=== PATIENT | male | born 1940 | race Caucasian/White ===

== ENCOUNTER 2018-12-14 11:42 | Inpatient (IN) | payer OTHER, BC ==
[2018-12-07 12:59] LABS: URINE BILIRUBIN NEGATIVE (Negative); URINE BLOOD NEGATIVE (Negative); URINE CLARITY CLEAR; URINE COLOR YELLOW; URINE GLUCOSE-RANDOM* 3+ (Negative); URINE KETONES NEGATIVE (Negative); URINE LEUKOCYTES-REFLEX NEGATIVE (Negative); URINE NITRITE-REFLEX NEGATIVE (Negative); URINE PROTEIN (DIPSTICK) NEGATIVE (Negative); URINE SPECIFIC GRAVITY 1.015 (1.005-1.035); URINE UROBILINOGEN 0.2 E.U./dl (0.2-1.0)
[2018-12-07 13:10] LABS: HEMATOCRIT 43.7 % (42.0-52.0); HEMOGLOBIN 14.7 gm/dL (14.0-18.0); MCH 26.4 pg (26.0-34.0); MCHC 33.7 g/dL (28.0-37.0); MCV 78.5 fL (80.0-100.0); RBC 5.57 mil/uL (4.50-6.00); RDW 16.5 % (10.5-14.5); WBC 7.9 thou/uL (4.0-11.0)
[2018-12-07 13:14] LABS: ALBUMIN 3.7 g/dL (3.4-5.0); CALCIUM 9.5 mg/dL (8.5-10.1); CREATININE 0.9 mg/dL (0.7-1.3); POTASSIUM 4.2 mmol/L (3.5-5.1); PROTIME 10.7 Seconds (9.3-11.4)
[2018-12-08 00:09] LABS: GLYCOHEMOGLOBIN (HGB A1C) 7.1 % (4.8-5.6)
[~2018-12-14] VITALS: Ht 172.7 cm; Wt 105.7 kg
--- NOTE | ~2018-12-14 | O ---
[facility] [place] [address] OPERATIVE REPORT Name: DANIEL WOODS Room #: 418-P ADM IN M.R.#: [id number] Admission: 12/14/18 Attend Phys: Miguel Isabel MD Discharge: Date of : 44 Report #: [id number] THIS REPORT FOR: //name// CC: Santos Soriano DATE OF SERVICE: 12/14/2018 PREOPERATIVE DIAGNOSIS: Right knee osteoarthritis. POSTOPERATIVE DIAGNOSIS: Right knee osteoarthritis. PROCEDURE: Right total knee arthroplasty using Navio robotic assistance. SURGEON: Miguel Isabel MD. FAST FOOD CREW MEMBER: Mackenzie Rosas PA-C. INDICATIONS FOR FAST FOOD CREW MEMBER: Throughout the case, extensive retraction and manipulation of the knee was required. This was afforded to me by my information assistant. ANESTHESIA: LMA with an adductor canal block. IMPLANTS: [employer]hew size 5 Legion cobalt chrome posterior stabilized femur, a size 4 tibia, size 9 highly constrained polyethylene and size 35 patella. TOURNIQUET TIME: 62 minutes. ESTIMATED BLOOD LOSS: 25 mL. COMPLICATIONS: None. SPECIMENS: None. CONDITION UPON LEAVING THE OPERATING ROOM: Stable. INDICATIONS FOR PROCEDURE: The patient is a 78-year-old gentleman with right knee osteoarthritis who failed conservative measures for this and after discussion with him, he elected for right total knee arthroplasty. DESCRIPTION OF PROCEDURE: Risks, benefits, alternatives, complications were discussed in detail with the patient including but not limited to risk of anesthesia, risk of damage to nerves, arteries, blood vessels, risk for [facility] [address] [place] [address] OPERATIVE REPORT Name: DANIEL WOODS Room #: 418-P [facility] IN M.R.#: [id number] Admission: 12/14/18 Attend Phys: Miguel Isabel MD Discharge: Date of : 44 Report #: [id number] infection, bleeding, risk for continued knee pain and need for reoperation. Informed consent was obtained from the patient. Right knee was appropriately marked in the preoperative holding area. IV Ancef was given for preoperative antibiotics. He was brought to the operating room and placed in supine position on operating room table. LMA anesthesia was induced without complication. Tourniquet was placed on the right thigh. Right lower extremity was prepped and draped in normal sterile fashion. Timeout was performed properly identifying the patient and procedure as well as the instrumentation. All in the operating room were in agreement. Right lower extremity was exsanguinated, tourniquet was inflated. Tourniquet time was 62 minutes. Standard midline approach to knee was made with 10 blade through the skin. Dissection was taken down sharply to the fascia and deep flaps were developed medially and laterally. Fresh 10 blade was used to make a medial parapatellar arthrotomy and the knee was inspected. There was severe tricompartment osteoarthritis. ACL and PCL were removed sharply. Osteophytes were removed from the femur. Reference pins were then placed in the femur and the tibia for the Navio system. The knee was then digitally mapped using the Navio system and we sized a size 5 femur and a size 4 tibia with an 11 spacer. After acceptance of the intraoperative plan, the distal femoral cut was made with a Navio bur. The size 5, 4-in-1 cutting block was placed and anterior, posterior and chamfer cuts were made on the femur. Attention was then turned to the tibia. Tibial resection was then made using the Navio for placement of the tibial resection guide. The remainder of the menisci removed with Bovie cautery. Flexion and extension gaps were then checked and found to be tight medially in flexion and extension and limited medial release was performed by taking down the medial osteophytes off the tibia as well as pie crust technique on the medial collateral ligament. This balanced the knee well and the tibia was sized, found to be a size 4. Size 4 tibial trial was placed, pinned and punched. Size 5 femoral trial was placed and the box cut was made. This was then trialed with size 9 polyethylene. Knee was taken through range of motion, found to have a millimeter laxity medially throughout range of motion. There was a 4 mm of laxity laterally throughout range of motion and it was felt that a highly constrained implant would make up for this. A 9 mm was taken from the posterior surface of the patella and a size 35 patellar trial button was placed. Knee was taken through range of motion, found to have good patellar tracking. After this, trial components were removed. Bony ends were thoroughly irrigated with normal saline. A final size 4 tibia, size 5 Legion cobalt chrome posterior stabilized femur and a size 9 polyethylene was cemented in place using standard cementation techniques. While the cement cured, a periarticular injection consisting of morphine, ropivacaine, epinephrine and Toradol was placed around the knee joint capsule. After the cement cured, the tourniquet was deflated. Hemostasis was obtained with Bovie cautery. Final size 9 highly constrained polyethylene was placed. A gram of vancomycin was placed deep in the joint. Fascia was closed with 0 Vicryl, skin was closed with 2-0 Vicryl and skin pam and a RONDA dressing was applied. [address] [address] OPERATIVE REPORT Name: DANIEL WOODS Room #: 418-P ADM IN M.R.#: [id number] Admission: 12/14/18 Attend Phys: Miguel Isabel MD Discharge: Date of : 44 Report #: [id number] The patient tolerated this procedure well and went to recovery room under care of anesthesia postoperatively. By: [id number] Miguel Isabel MD /nt
[~2018-12-14 11:42] MED LIST: APAP650 PO; ARICEPT 5 MG TAB5 MG PO; BIOFLEX TABLET1 EACH PO; COREG6.25 MG PO; FIBER500 MG PO; FLOMAX0.4 MG PO; GEMFIBROZIL 60600 MG PO; GLIPIZIDE 10 MG10 MG PO; HYZAAR 100-251 EACH PO; IMODIUM A-D2 M1 PO; INVOKANA300 MG PO; KLOR-CON 10 ER10 MEQ PO; METFORMIN HCL500 MG PO; NORVASC10 MG PO; NUEDEXTA 20-101 EACH PO; OMEPRAZOLE40 MG PO; SEROPHENE50 MG PO; TOUJEO SOL300 UNIT/1 SUBQ; TRULICITY1.5 MG/0.5 SUBQ
[2018-12-14 13:56] VITALS: BP 128/64
--- NOTE | 2018-12-14 19:54 | NUR ---
[age] YEAR OLS MALE ADMITTED TO [address] [place] [address] [address] UNDER THE CARE OF DR. ROBERSON. PT HAD SURGERY TODAY, RIGHT TOTAL KNEE. DRESSING TO RIGHT KNEE C/D/I PT ALERT AND ORIENTED TIMES FOUR. VSS, 97%RA, IVF INFUSING PER ORDER. PT DENEIS ANY PAIN/SOA AT THIS THIS TIME. PT TOLERATED DINNER. PT AT BEDSIDE DURING ADMISSION ASSESSMENT. WILL CONTINUE TO MONITOR.
[2018-12-15 04:06] VITALS: BP 117/66
[2018-12-15 05:49] LABS: HEMATOCRIT 39.6 % (42.0-52.0); HEMOGLOBIN 12.9 gm/dL (14.0-18.0); MCH 26.1 pg (26.0-34.0); MCHC 32.5 g/dL (28.0-37.0); MCV 80.1 fL (80.0-100.0); RBC 4.94 mil/uL (4.50-6.00); RDW 16.3 % (10.5-14.5); WBC 10.8 thou/uL (4.0-11.0)
--- NOTE | 2018-12-15 06:49 | NUR ---
ASSUMED CAR OF PT @1900 PT A&OX4 PAIN AND EVENING MDS GIVN SEE EMAR. IV INTACT IN R HAND AND FLUIDS INFUSING. RONDA DRESSING IN RT KNEE INAC AND ICE PACK GIVEN. USES URINAL AT NIGHT. AT BEDSIDE FOR THE NIGHT. INSULIN GIVEN FOR BLOOD SUGAR CONTROL WILL CONTINUE WITH POC TIL EOS
[2018-12-15 07:12] VITALS: BP 122/72
[2018-12-15] MEDS ORDERED: ASPIR 8181 MG PO (11:14)
[2018-12-15] MEDS ORDERED: HYDROCODON-ACE1 EAC7 PO (11:14)
[2018-12-15] MEDS ORDERED: NEURONTIN 300300 M1 PO (11:14)
[2018-12-15] MEDS ORDERED: MS CONTIN15 MG PO (11:14)
--- NOTE | 2018-12-15 13:49 | NUR ---
PT ADMITTED RELATED TO RT TOTAL KNEE REPLACEMENT. CM REVIEWED CHART AND SPOKE WITH CARE TEAM. CM MET WITH PT AT [facility] THIS DAY. PT IS A&O X4. CM ROLE INTRODUCED. PT INDICATED HE LIVES IN A MOBILE HOME WITH HIS WITH 5 STEPS TO ENTER AND NO STEPS INSIDE. 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 PT INDICATED THAT HE IS TO HAVE [facility] FOR PT UPON DC. PT STATED THAT HE NEEDS A FWW FOR HOME USE. CM NOTIFIED PROVID[facility] [employer] [employer]. FWW WILL BE DELIVERED. PT MAY BE MEDICALLY STABLE TO DC HOME THIS DAY. ORDERS TO BE FAXED TO [facility]. NO OTHER CM INTERVENTION INDICATED. CASE CLOSED.
[2018-12-15 13:57] VITALS: BP 122/72
[2018-12-15 15:33] VITALS: BP 122/72
[2018-12-15 15:53] VITALS: BP 117/58
--- NOTE | 2018-12-15 16:23 | NUR ---
patient dc today home, dp sent dc paperwork to [facility] and let Nela know.
--- NOTE | 2018-12-15 18:02 | NUR ---
DC ORDERS RECIEVED. IV REMOVED FROM R HAND. DC INSTRUCTIONS, SCRIPTS AND F/U APPOINT REVIEWED WITH PT. VOLUNTEER ESCORTED PT TO MAIN ENTRANCE BY W/C.
== END 2018-12-15 18:37 | disposition home health service (06) | DRG 470 ==
LOC: PRE 11:42 → TBA 12:48 → 4E 12:48 → PRE 13:43 → 4E 18:09
PROVIDERS: ADMIT Orthopaedic Surgery
PROC: 0SRC0J9 Replacement of Right Knee Joint with Synthetic Substitute, Cemented, Open Approach (ICD-10-PCS; principal; 2018-12-14)
PROC: 8E0Y0CZ Robotic Assisted Procedure of Lower Extremity, Open Approach (ICD-10-PCS; principal; 2018-12-14)
DX: M17.11 Unilateral primary osteoarthritis, right knee (principal); G30.9 Alzheimer's disease, unspecified; F02.80 Dementia in other diseases classified elsewhere, unspecified severity, without behavioral disturbance, psychotic disturbance, mood disturbance, and anxiety; E11.9 Type 2 diabetes mellitus without complications; K21.9 Gastro-esophageal reflux disease without esophagitis; E78.00 Pure hypercholesterolemia, unspecified; Z88.8 Allergy status to other drugs, medicaments and biological substances; Z87.891 Personal history of nicotine dependence; Z79.899 Other long term (current) drug therapy
CPT/HCPCS: 10783; 50010; 50101; 50415; 50954; 51130; 51225; 51412; 53000; 53078; 53364; 56528; 57095; 57103; 57110; 57127; 57180; 62110; 62900; 64043; 65060; 70005